=== PATIENT | female | born 1990 | race Caucasian/White ===

== ENCOUNTER → 2019-07-15 10:24 | Outpatient (CLI) | payer OTHER, SELFPAY ==
[2019-07-15 11:07] LABS: Hematocrit 37.4 % (36-46); Hemoglobin 12.8 g/dL (12.0-16.0); Mean Corpuscular HGB Conc 34.3 % (30-36); Mean Corpuscular Hemoglobin 29.6 PG (26-34); Mean Corpuscular Volume 86.4 fL (80-100); Platelet Count 205 X10^3/uL (150-400); Red Blood Cell Count 4.33 X10^6/uL (4.0-5.2); Red Cell Distribution Width 12.3 % (11.6-14.8); White Blood Cell Count 5.2 X10^3/uL (4.5-11.0)
[2019-07-15 11:35] LABS: Alanine Aminotransferase 10 IU/L (<35); Albumin 4.2 g/dL (3.5-5.0); Albumin Globulin Ratio 1.3 (1.0-2.8); Alkaline Phosphatase 53 U/L (38-126); Aspartate Aminotransferase 17 IU/L (14-36); BUN Creatinine Ratio 14.3 (6-22); Bilirubin Total 0.3 mg/dL (0.2-1.3); Blood Urea Nitrogen 10 mg/dL (7-17); Calcium 9.4 mg/dL (8.4-10.2); Carbon Dioxide 23 mmol/L (22-32); Chloride 106 mmol/L (98-107); Cholesterol 174 mg/dL (140-199); Estimated Glomerular Filt Rate > 60.0 mL/min (>60); Globulin 3.2 g/dL (1.7-4.1); Glucose 99 mg/dL (70-100); HDL Cholesterol 92 mg/dL (40-60); HEMOLYSIS < 15 (0-50); LDL Cholesterol Calculated 65 mg/dL (<100); Potassium 4.2 mmol/L (3.4-5.1); Sodium 137 mmol/L (137-145); Total Protein 7.4 g/dL (6.3-8.2); Triglycerides 86 mg/dL (35-150)
== END ==
PROVIDERS: PCP Nurse Practitioner Family; Referring Provider Nurse Practitioner Family; Visit Provider Nurse Practitioner Family
DX: Z00.00 Encounter for general adult medical examination without abnormal findings (principal); Z13.6 Encounter for screening for cardiovascular disorders
CPT/HCPCS: 36415; 80053; 80061; 85027

== ENCOUNTER → 2021-03-04 15:23 | Outpatient (CLI) | payer OTHER, SELFPAY ==
[2021-03-04 15:57] LABS: Add Manual Diff / Slide Review NO; Basophils Absolute Auto 100 /uL (0-100); Basophils Percent Auto 0.9 % (0-2); Eosinophils Absolute Auto 100 /uL (0-450); Eosinophils Percent Auto 1.1 % (2-4); Hematocrit 38.7 % (36-46); Lymphocytes Absolute Auto 1700 /uL (1100-4500); Lymphocytes Percent Auto 22.7 % (25-40); Mean Corpuscular HGB Conc 33.6 % (30-36); Mean Corpuscular Hemoglobin 29.2 PG (26-34); Mean Corpuscular Volume 86.8 fL (80-100); Monocytes Absolute Auto 500 /uL (0-900); Monocytes Percent Auto 6.8 % (3-14); Neutrophils Absolute Auto 5200 /uL (1500-7000); Neutrophils Percent Auto 68.5 % (50-75); Platelet Count 232 X10^3/uL (150-400); Red Blood Cell Count 4.46 X10^6/uL (4.0-5.2); Red Cell Distribution Width 12.4 % (11.6-14.8); White Blood Cell Count 7.6 X10^3/uL (4.5-11.0)
[2021-03-04 17:00] LABS: Hepatitis B Surface Antigen NEGATIVE s/c (NEGATIVE)
[2021-03-04 17:01] LABS: Rubella Antibody IgG 13.2 IU/mL (>15)
[2021-03-04 17:20] LABS: Appearance Urine UA CLEAR; Bilirubin Urine UA NEGATIVE (NEGATIVE); Color Urine UA YELLOW; Glucose Urine UA NEGATIVE (Negative); Ketones Urine UA TRACE (NEGATIVE); Leukocyte Esterase Urine UA NEGATIVE (NEGATIVE); Nitrite Urine UA NEGATIVE (Negative); Occult Blood Urine UA NEGATIVE (Negative); Protein Urine UA NEGATIVE (Negative); Specific Gravity Urine UA 1.015 (1.000-1.035); Urobilinogen Urine UA 0.2 E.U./dL (0.2)
[2021-03-04 17:31] LABS: HIV 1 & 2 Ab/Ag 4th Gen Combo NEGATIVE (NEGATIVE); Hep C Virus Ab w/Reflex Quant NEGATIVE s/c (NEGATIVE)
[2021-03-05 06:38] LABS: RPR Screen Non Reactive (Non Reactive)
[2021-03-06 15:27] LABS: Varicella IgG Antibody 1025 index (Immune >165)
== END ==
PROVIDERS: PCP Nurse Practitioner Family; Referring Provider Family Medicine; Visit Provider Family Medicine
DX: Z34.01 Encounter for supervision of normal first pregnancy, first trimester (principal)
CPT/HCPCS: 36415; 80055; 81003; 86787; 86803; 86850; 86900; 86901; 87086; 87389

== ENCOUNTER → 2021-04-08 13:36 | Outpatient (CLI) | payer OTHER, SELFPAY | PROVIDERS: PCP Nurse Practitioner Family; Referring Provider Family Medicine; Visit Provider Family Medicine | DX: Z34.90 Encounter for supervision of normal pregnancy, unspecified, unspecified trimester (principal); Z3A.10 10 weeks gestation of pregnancy | CPT/HCPCS: 36415 ==

== ENCOUNTER → 2021-06-03 12:01 | Outpatient (CLI) | payer OTHER, SELFPAY ==
--- NOTE | 2021-06-03 12:03 | DI.US.S_ITS ---
PROCEDURE: US OB >= 14 WEEKS FETUS INDICATIONS: ANATOMY SURVEY OUTSIDE/PRIOR DATING DATA: Last menstrual period (LMP): 01/07/2021. LMP-based estimated date of delivery (CELINA): 10/14/2021. First dating scan (date and location): 06/03/2021. Estimated date of delivery (CELINA) from first dating scan: 10/18/2021. The calculations are made using the ultrasound CELINA of 10/18/2021. TECHNIQUE: Real-time scanning was performed of the fetus, with image documentation and biometric measurements. Endovaginal scanning: Not performed COMPARISON: None. FINDINGS: General: A single living intrauterine gestation is present. Presentation: Cephalic. Placenta: Placental position is anterior, without previa. Amniotic fluid index: 14.8 cm, normal range is 5-24 cm. Single deepest vertical pocket is 4.3 cm. heart rate: 141 beats per minute. Maternal cervical canal: 3.9 cm long. Normal lower limit is 2.5 cm. biometrics: Biparietal diameter: 4.9 cm, 20 weeks 5 days Head circumference: 17.5 cm, 20 weeks 0 days Abdominal circumference: 15.1 cm, 20 weeks 2 days Femur length: 3.4 cm, 20 weeks 6 days Clinically estimated gestational age: 21 weeks 0 days Composite gestational age from present scan: 20 weeks 3 days Estimated weight and percentile: 357 g, 20th percentile Anatomic survey: Neuro: Ventricles are non-dilated at less than 10 mm. Cisterna magna is normal at 3-11 mm. Cerebellum is normal in size and morphology. Nuchal skin fold: Normal at less than 6 mm between 14-21 weeks gestational age. Face: Nose and lips, facial profile are normal. Spine: No evidence for spina bifida. Heart: 4-chambered heart is present, with normal ventricular outflow tracts. Diaphragm: Diaphragm is intact. Stomach: Left-sided stomach is present. Kidneys: No hydronephrosis. Normal is less than 5 mm in 2nd trimester, less than 7 mm in 3rd trimester. Cord: 3-vessel cord has orthotopic insertion. Bladder: Normal in size. Extremities: All 4 extremities identified. IMPRESSION: 1. [place] living intrauterine at 20 weeks 3 days based on today's ultrasound. This is concordant with the prior dating. Fetus is in the 20th percentile for weight. 2. Normal placenta and amniotic fluid. 3. Normal and complete anatomic survey. We strive to produce accurate, complete, and clear reports of imaging services. To assist us in improving patient care, this report was composed using standard report templates and voice recognition software. Therefore, it may contain abnormal punctuation, insertions and/or omissions. Occasional wrong-word or sound-alike substitutions may occur. Though we review the report and make efforts to correct it, we do recommend that the report be read carefully in proper context to recognize any text inaccuracies. Dictated by: Dat Reyes M.D. on 06/03/2021 at 13:40 Approved by: Dat Reyes M.D. on 06/03/2021 at 13:45
== END ==
PROVIDERS: PCP Nurse Practitioner Family; Referring Provider Family Medicine; Visit Provider Family Medicine
DX: Z34.02 Encounter for supervision of normal first pregnancy, second trimester (principal); Z3A.20 20 weeks gestation of pregnancy
CPT/HCPCS: 76811

== ENCOUNTER → 2021-07-22 10:01 | Outpatient (CLI) | payer OTHER, SELFPAY ==
[2021-07-22 11:42] LABS: Add Manual Diff / Slide Review NO; Basophils Absolute Auto 0 /uL (0-100); Basophils Percent Auto 0.4 % (0-2); Eosinophils Absolute Auto 100 /uL (0-450); Hematocrit 31.4 % (36-46); Hemoglobin 10.6 g/dL (12.0-16.0); Lymphocytes Absolute Auto 1300 /uL (1100-4500); Lymphocytes Percent Auto 15.1 % (25-40); Mean Corpuscular HGB Conc 33.7 % (30-36); Mean Corpuscular Hemoglobin 30.7 PG (26-34); Mean Corpuscular Volume 90.9 fL (80-100); Monocytes Absolute Auto 600 /uL (0-900); Monocytes Percent Auto 6.9 % (3-14); Neutrophils Absolute Auto 6800 /uL (1500-7000); Neutrophils Percent Auto 76.6 % (50-75); Platelet Count 238 X10^3/uL (150-400); Red Blood Cell Count 3.46 X10^6/uL (4.0-5.2); Red Cell Distribution Width 13.2 % (11.6-14.8); White Blood Cell Count 8.9 X10^3/uL (4.5-11.0)
[2021-07-22 12:10] LABS: GTT (PREG) 1 Hour PP 50gm Dose 117 mg/dL (76-139)
[2021-07-22 14:48] LABS: Urine Chlamydia NOT DETECTED; Urine N gonorrhoeae NOT DETECTED
== END ==
PROVIDERS: PCP Nurse Practitioner Family; Referring Provider Family Medicine; Visit Provider Family Medicine
DX: Z34.92 Encounter for supervision of normal pregnancy, unspecified, second trimester (principal); Z3A.26 26 weeks gestation of pregnancy
CPT/HCPCS: 36415; 82950; 85025; 87491; 87591

== ENCOUNTER 2021-09-27 15:02 | Observation (INO) | payer OTHER, SELFPAY ==
--- NOTE | 2021-09-27 15:20 | DI.US.S_ITS ---
PROCEDURE: US OB BIOPHYSICAL PROFILE INDICATIONS: HEART TONES IN THE 70s IN CLINIC OUTSIDE/PRIOR DATING DATA: Last menstrual period (LMP): 01/07/2021. LMP-based estimated date of delivery (CELINA): 10/14/2021. First dating scan (date and location): 06/03/2021. Estimated date of delivery (CELINA) from first dating scan: 10/18/2021. TECHNIQUE: Real-time scanning was performed of the fetus, with image documentation and biometric measurements. Biophysical profile was also obtained. Endovaginal scanning: Not obtained COMPARISON: None. FINDINGS: General: A single living intrauterine gestation is present. Presentation: Cephalic. Placenta: Placental position is anterior , without previa. Amniotic fluid index: 17.4 cm, normal range is 5-24 cm. heart rate: 155 beats per minute. Maternal cervical canal: 4.3 cm long. Normal lower limit is 2.5 cm. Biophysical profile: Tone: 2 points. Movement: 2 points. Respiration: 2 points. Largest pocket of fluid: 2 points. IMPRESSION: Single live intrauterine consistent with 37 week 0 day gestation. heart rate 155 beats per minute Approved by: Saúl Santos M.D. on 09/27/2021 at 16:23
--- NOTE | 2021-09-27 15:25 | PM.OBTRLD ---
Visit Information Visit Information Date of evaluation: 09/27/21 Primary OB Provider: Sylvie Hu Reason for Evaluation: Yes non-stress test Comments/Additional reasons for admission: Pt is a 31yo at 36w4d who presented from clinic after doppler showed HR in the 70s. The pt reports feeling the baby move less than usual today, and not for a little while. She denies any vaginal bleeding or LOF. She has been having mild, intermittent contractions. 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 Social History marital status: number of children: 0 household members: spouse lives independently: Yes caregiver/support person: No housing: house pets and animals: Yes (2 dogs: safe/aware.) education level: college occupational status: employed current occupational exposures/hazards: Yes (Some nitrous exposure. Trying to avoid it. ) special christie needs: No seatbelt use: always do you feel safe at home: Yes Smoking Status: Former smoker Tobacco: How many years used: 1 quit status: has quit before second hand exposure: No alcohol intake: former substance use type: does not use and other during the past year weight has: remained stable well-balanced diet: daily or most days daily servings fruits/ve-4 caffeine: No Type(s) of exercise: walking and normal ROM and activity frequency: does not exercise Evaluation Evaluation Baseline heart rate: 140 Variability: Moderate (11-25) monitor accelerations: Present Monitor Decelerations: Absent Contraction Frequency (minutes): 4 Category of Tracing: Reactive Status: Category l Cervical dilation (cm): 1 Cervical effacement (%): 50 station: -2 Diagnosis, Plan/Disposition Final Diagnosis (1) contractions: Status: Acute Plan/Disposition Plan: Pt is a 31yo at 36w4d here due to FHT in the 70s on doppler in clinic. FHT reassuring here in L&D on prolonged monitoring, with 8/8 BPP as well. Discussed kick counting in detail with the pt. Pt then noted to have regular contractions on monitoring, felt lightly be patient. Eventually decreased significantly and resolved with IVF bolus. No cervical change on exam. Pt stable for d/c home. OB Disposition: home
[2021-09-27] MEDS: LACTATED RINGERS 1,000 ML 999 ML IV (18:45)
--- NOTE | 2021-09-27 20:00 | PC.NURSE ---
19:50 RN at bedside, patient is doing well sitting up in bed, fluid bolus completed. Cervical exam requested by Dr. Hu, exam fingertip, 50%, and -2. Contractions have resolved and patient is doing well. Dr. Hu was contacted and given patient report. Plan to discharge.
== END 2021-09-27 20:16 | disposition home or self-care (01) ==
PROVIDERS: Admitting Provider Family Medicine; PCP Nurse Practitioner Family; Referring Provider Family Medicine; Visit Provider Family Medicine
DX: O36.8330 Maternal care for abnormalities of the fetal heart rate or rhythm, third trimester, not applicable or unspecified (principal); O47.03 False labor before 37 completed weeks of gestation, third trimester; O36.8130 Decreased fetal movements, third trimester, not applicable or unspecified; Z3A.36 36 weeks gestation of pregnancy
CPT/HCPCS: 59025; 59050; 76815; 76819; 96360; G0378; G0379

== ENCOUNTER → 2021-10-04 11:05 | Outpatient (CLI) | payer OTHER, SELFPAY ==
[2021-10-05 15:18] LABS: Strep Grp B PCR NEG for Grp B Strep
== END ==
PROVIDERS: PCP Nurse Practitioner Family; Visit Provider Family Medicine
DX: Z34.03 Encounter for supervision of normal first pregnancy, third trimester (principal); Z3A.37 37 weeks gestation of pregnancy
CPT/HCPCS: 87653

== ENCOUNTER 2021-10-18 15:02 | Observation (INO) | payer OTHER, SELFPAY ==
--- NOTE | 2021-10-18 16:03 | P.TNLD_ITS ---
Visit Information Visit Information Date of evaluation: 10/18/21 Primary OB Provider: Sylvie Hu Reason for Evaluation: Yes rupture of membranes Comments/Additional reasons for admission: Pt is a 31yo at 39w4d here for concerns for LOF. Pt reports feeling her underwear have been damp since this morning. She denies any vaginal bleeding. She has had mild cramping, but no strong contractions. 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 Social History marital status: number of children: 0 household members: spouse lives independently: Yes caregiver/support person: No housing: house pets and animals: Yes (2 dogs: safe/aware.) education level: college occupational status: employed current occupational exposures/hazards: Yes (Some nitrous exposure. Trying to avoid it. ) special christie needs: No seatbelt use: always do you feel safe at home: Yes Smoking Status: Never smoker Tobacco: How many years used: 1 quit status: has quit before second hand exposure: No alcohol intake: former substance use type: does not use and other during the past year weight has: remained stable well-balanced diet: daily or most days daily servings fruits/ve-4 caffeine: No Type(s) of exercise: walking and normal ROM and activity frequency: does not exercise Evaluation Evaluation Baseline heart rate: 140 Variability: Moderate (11-25) monitor accelerations: Present Monitor Decelerations: Absent Contraction Frequency (minutes): 5 Uterine Contraction Intensity: Mild Status: Category l Cervical dilation (cm): 1 Cervical effacement (%): 80 station: -1 Non-invasive Membranes Rupture Test: negative Diagnosis, Plan/Disposition Final Diagnosis (1) Amniotic fluid leaking: Status: Acute Plan/Disposition Plan: 31yo at 39w4d who presented with concerns for LOF. Amniosure negative. C ontracting, but feeling minimally and no significant cervical change. Stable for d/c home. OB Disposition: home
== END 2021-10-18 16:00 | disposition home or self-care (01) ==
PROVIDERS: Admitting Provider Family Medicine; PCP Nurse Practitioner Family; Referring Provider Family Medicine; Visit Provider Family Medicine
DX: Z03.71 Encounter for suspected problem with amniotic cavity and membrane ruled out (principal); Z3A.39 39 weeks gestation of pregnancy
CPT/HCPCS: 59025; 84112; G0378; G0379

== ENCOUNTER 2021-10-18 18:15 | Outpatient (CLI) | payer OTHER, SELFPAY | END 2021-10-18 19:00 | disposition home or self-care (01) | LOC: LABOR 18:20 → OB 10-21 16:03 | PROVIDERS: PCP Nurse Practitioner Family; Referring Provider Family Medicine; Visit Provider Family Medicine | DX: Z03.71 Encounter for suspected problem with amniotic cavity and membrane ruled out (principal); Z3A.39 39 weeks gestation of pregnancy | CPT/HCPCS: 59025; 84112; G0378; G0379 ==

== ENCOUNTER 2021-10-19 17:41 | Inpatient (IN) | payer OTHER, SELFPAY ==
[2021-10-19 19:04] LABS: Add Manual Diff / Slide Review NO; Basophils Absolute Auto 100 /uL (0-100); Basophils Percent Auto 0.9 % (0-2); Eosinophils Absolute Auto 100 /uL (0-450); Eosinophils Percent Auto 0.9 % (2-4); Hematocrit 36.7 % (36-46); Hemoglobin 12.9 g/dL (12.0-16.0); Lymphocytes Absolute Auto 1600 /uL (1100-4500); Lymphocytes Percent Auto 15.9 % (25-40); Mean Corpuscular HGB Conc 35.2 % (30-36); Mean Corpuscular Hemoglobin 31.4 PG (26-34); Monocytes Absolute Auto 900 /uL (0-900); Monocytes Percent Auto 9.3 % (3-14); Neutrophils Absolute Auto 7200 /uL (1500-7000); Platelet Count 206 X10^3/uL (150-400); Red Blood Cell Count 4.12 X10^6/uL (4.0-5.2); Red Cell Distribution Width 12.8 % (11.6-14.8); White Blood Cell Count 9.9 X10^3/uL (4.5-11.0)
[2021-10-19] MEDS: LACTATED RINGERS 1,000 ML 100 ML IV ×2 (19:30→22:54)
[2021-10-19 19:40] LABS: COVID19 -Nasal RAPID Negative (Negative)
[2021-10-19 20:13] VITALS: BP 124/76
--- NOTE | 2021-10-19 23:22 | PM.AN.REGBLK ---
Regional Block Pre-procedure Procedure: Continuous Lumbar Epidural for L&D Attending OB provider: Sylvie Hu PMH/ROS narrative: term labor, SROM, no complications. ASA Class: II Labs: Hct 36.7 % (36-46) 10/19/21 18:45 Plt Count 206 X10^3/uL (150-400) 10/19/21 18:45 Medications: Current Medications Generic Name Dose Route Start Last Admin Trade Name Freq PRN Reason Stop Dose Admin Carboprost Tromethamine 250 mcg 10/19/21 18:35 Carboprost 250 Mcg/Ml Ampul IM Q90M PRN Bleeding Lactated Ringer's 1,000 mls @ 100 mls/hr 10/19/21 18:45 10/19/21 22:54 Lactated Ringers IV 100 mls/hr CONT LUCINDA Administration Oxytocin/Lactated Ringer's 30 unit in 500 mls @ 200 mls/hr 10/19/21 18:35 Oxytocin Premix IV CONT PRN Bleeding Protocol Tranexamic Acid 1,000 mg/ 100 mls @ 200 mls/hr 10/19/21 18:35 Sodium Chloride IV NOW PRN Bleeding Methylergonovine Maleate 0.2 mg 10/19/21 18:35 Methylergonovine 0.2 Mg Tablet PO Q6HR PRN Heavy Bleeding Methylergonovine Maleate 0.2 mg 10/19/21 18:35 Methylergonovine 0.2 Mg/Ml Vial IM NOW PRN Bleeding Misoprostol 800 mcg 10/19/21 18:35 Misoprostol 200 Mcg Tablet AR NOW PRN Bleeding Misoprostol 1,000 mcg 10/19/21 18:35 Misoprostol 200 Mcg Tablet AR NOW PRN Bleeding Misoprostol 400 mcg 10/19/21 18:35 Misoprostol 200 Mcg Tablet SL NOW PRN Bleeding Oxytocin 10 unit 10/19/21 18:35 Oxytocin 10 Unit/Ml Vial IM NOW PRN Bleeding Allergies: Allergies Allergy/AdvReac Type Severity Reaction Status Date / Time Penicillins Allergy Intermediate Rash Verified 10/15/21 10:35 Sulfa (Sulfonamide Allergy Intermediate Rash Verified 10/15/21 10:35 Antibiotics) Procedure Insertion date: 10/19/21 Insertion time: 23:06 Prep/Local: betadine x3 and 1% lidocaine Interspace: L3-4 Patient position: sitting Needle: 18 gauge Hustead (CSE: 27 g Pencan through Hustead, clear CSF, 1mL 0.25% bupiv MPF) Loss of resistance with: saline SUZY at (cm): 5 Catheter placed at SKIN (cm): 10 Catheter in SPACE (cm): 5 Insertion: No CSF, No Blood, No Paresthesia with insertion, No Paresthesia with injection and No Test dose reaction Initial Medications TEST DOSE time: 23:08 TEST DOSE: 1.5% lidocaine with epinephrine 1:200k (mL): 3 BOLUS DOSE time: 23:20 BOLUS DOSE (mL): 5 BOLUS DOSE med: other (infusate) Infusion INFUSION: 0.125% bupivacaine and with fentanyl 2 mcg/mL Initial rate (mL/hr): 6 Subsequent interventions: 1200 - 5mL 2-chloroprocaine for lac repair Post-procedure Anesthesia time START: 22:55 Anesthesia time END: 12:33 Post-procedure Anesthesia Assessment: Yes CV function: HR/BP stable, Yes Resp function: RR/sat/airway adequate, Yes Mental status appropriate and No Anesthesia complications
[2021-10-20] MEDS: OXYTOCIN PREMIX 30 UNIT/500 ML PLAST..BAG IV (02:10)
[2021-10-20] MEDS: LACTATED RINGERS 1,000 ML 100 ML IV (06:00)
[2021-10-20] MEDS: FENT 2MCG/ML BUPIV 0.125% EPI 200 MCG/100 ML PLAST..BAG 6 MCG EPIDURAL (08:48)
--- NOTE | 2021-10-20 09:01 | P.HPOB_ITS ---
OB HPI Date/Time Date of admission: 10/19/21 Date Patient Seen: 10/20/21 Time Patient Seen: 09:02 History of Present Condition Chief complaint: CELINA Calculator Estimated Delivery Date Method Current WG Current Estimate 10/21/21 Manual 39w 6d Final CELINA - DOMITILA Other Estimates 10/14/21 LMP (Certain) 40w 6d 10/21/21 Ultrasound #1 39w 6d Estimated Gestational Age (weeks): 39w6d : 1 Para: 0 Narrative: Pt is a 31yo at 39w6d who presented with SROM. Pt reports feeling a gush of fluid around 5:30pm yesterday. She has continued to leak since then. She denies any vaginal bleeding. Her contractions have gotten more painful. She continues to feel her baby move regularly. The pts has been uncomplicated. care: good care, initiated at week # and pounds weight gain Dating criteria OB: based on 1st trimester US only Ultrasounds: normal 1st trimester US and normal mid trimester US Obstetrical complications: none Medical complications OB: none Preadmission Labs Last OB Lab Results: Blood Type B Positive 10/19/21 18:45 10/19/21 Antibody Screen Negative 10/19/21 18:45 10/19/21 Hematocrit 36.7 % (36-46) 10/19/21 18:45 10/19/21 Hemoglobin 12.9 g/dL (12.0-16.0) 10/19/21 18:45 10/19/21 Hepatitis B Surface Antigen Negative s/c (NEGATIVE) 03/04/21 15:29 03/04/21 Hepatitis C Antibody Negative s/c (NEGATIVE) 03/04/21 15:29 03/04/21 Rubella Antibody 13.2 IU/mL (>15) L 03/04/21 15:29 03/04/21 Varicella-Zoster IgG Antibody 1025 index (Immune >165) 03/04/21 15:29 03/04/21 Glucose 1 Hour 117 mg/dL (76-139) 07/22/21 11:20 07/22/21 Group B Streptococcus (PCR) Neg for grp b strep 10/04/21 11:05 10/04/21 -: Chlamydia screen: negative, Gonorrhea screen: negative and Urine: negative Genetic Screens: Cell-free DNA: Normal External Labs -: Urine: negative Evaluation Evaluation Baseline heart rate: 120 Variability: Moderate (11-25) monitor accelerations: Present Monitor Decelerations: Absent Contraction Frequency (minutes): 3 Uterine Contraction Intensity: Strong/Firm Status: Category l Dilation (cm): 10 Effacement (%): 100 station: +1 Non-invasive Membranes Rupture Test: positive [facility] Medical History (Updated 10/19/21 @ 21:25 by Sylvie Hu MD) Abnormal Pap smear of cervix (~2018) Acne (~2009) Chicken pox (~1992) Chlamydia (~2013) Fainting (2015) Finger fracture, right 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 Social History marital status: number of children: 0 household members: spouse lives independently: Yes caregiver/support person: No housing: house pets and animals: Yes (2 dogs: safe/aware.) education level: college occupational status: employed current occupational exposures/hazards: Yes (Some nitrous exposure. Trying to avoid it. ) special christie needs: No seatbelt use: always do you feel safe at home: Yes Smoking Status: Never smoker Tobacco: How many years used: 1 quit status: has quit before second hand exposure: No alcohol intake: former substance use type: does not use and other during the past year weight has: remained stable well-balanced diet: daily or most days daily servings fruits/ve-4 caffeine: No Type(s) of exercise: walking and normal ROM and activity frequency: does not exercise Meds Home Medications and Allergies Home Medications Medication Instructions Recorded Confirmed Type ketoconazole 2 % shampoo 1 applic TOP 2XW PRN #120 ml 12/12/20 10/20/21 Rx prenat.vits,aleksandr,ibh-jxiy-angyr 1 tab PO DAILY 02/22/21 10/20/21 History breast pump #1 ea 07/29/21 10/20/21 Rx Allergies Allergy/AdvReac Type Severity Reaction Status Date / Time Penicillins Allergy Intermediate Rash Verified 10/15/21 10:35 Sulfa (Sulfonamide Allergy Intermediate Rash Verified 10/15/21 10:35 Antibiotics) Objective Labs Result Diagrams: 10/19/21 18:45 Labs: Laboratory Results - last 24 hr 10/19/21 10/19/21 10/19/21 18:45 18:45 18:45 WBC 9.9 RBC 4.12 Hgb 12.9 Hct 36.7 MCV 89.0 MCH 31.4 MCHC 35.2 RDW 12.8 Plt Count 206 Neut % (Auto) 73.0 Lymph % (Auto) 15.9 L Ida % (Auto) 9.3 Eos % (Auto) 0.9 L Baso % (Auto) 0.9 Neut # (Auto) 7200 H Lymph # (Auto) 1600 Ida # (Auto) 900 Eos # (Auto) 100 Baso # (Auto) 100 SARS-CoV-2 (PCR) Negative Blood Type B Positive Antibody Screen Negative Assessment and Plan Assessment and Plan Assessment and Plan narrative: 31yo at 39w6d here with SROM at 5:30pm yesterday. Pitocin initiated last night due to spacing of contractions, now fully dilated. GBS negative, Rh p ositive. - Expectant management, anticipate - Start pushing now - GBS negative, no prophylaxis indicated - FHT reassuring - Epidural in place for pain control
[2021-10-20] MEDS: fentaNYL 100 MCG/2 ML INJ 50 MCG IV (12:04)
[2021-10-20] MEDS: IBUPROFEN 600 MG TABLET PO (15:20)
[2021-10-20] MEDS: DOCUSATE 100 MG CAPSULE PO (15:20)
[2021-10-20] MEDS: DERMOPLAST SPRAY 20% 60 ML 1 SPRAY TOP (15:25)
--- NOTE | 2021-10-20 15:30 | PM.OBPRVD ---
Labor & Delivery Delivery date: 10/20/21 Intrapartal Events: None Cervical ripening method: none Induction method: none Delivery augmentation: pitocin Delivery monitor: external FHT Route of delivery: Episiotomy description: None L&D Laceration Description: Perineal - 4th Degree and Vaginal - 2nd Degree Quantitative Blood Loss: 250 Anesthesia Type: Epidural Complications: Shoulder dystocia Narrative: PROCEDURE: at 39w8d presented with SROM and was admitted to Labor and Delivery. The patient progressed through the 1st stage over 15.5 hours. Pain was controlled with an epidural. Pitocin was initiated due to spacing of her contractions. The patient progressed through the 2nd stage over 2.5 hours. With delivery of the head, there was no movement past the brow. The head was able to be extracted with rectal pressure. A shoulder dystocia was then present (see below). She ultimately delivered a viable female with APGARs 7/9 at 11:42 via . The cord was cut and clamped after it stopped pulsating. The perineum and vagina were inspected with left sulcal laceration with arterial bleeding that extended onto the left labia. This was promptly repaired with 2-O Chromic. The epidural was then rebolused to help with pain control. A 2nd degree perineal laceration with extension superficially to 4th degree including the rectal mucosa but not involving the rectal sphincter was then repaired. The rectal mucosa was repaired with 4-O Chromic, and then 2nd degree perineal laceration repaired with 2-O Vicryl in the usual fashion. Shoulder dystocia present: Anterior shoulder : Right Time head delivered: 11:41 Time rest of body delivered: 11:42 No fundal pressure applied Standard traction on vertex applied. Maneuvers performed: Harish, Suprapubic pressure Episiotomy: None Cord gases sent: No. Baby cried spontaneously immediately after delivery. Delayed cord clamping completed. Very little blood remained in the cord after delayed clamping, making collection of cord gases not obtainable. Status of before leaving delivery room: Evidence of injury: None Moving all extremities: Yes Patient was notified of shoulder dystocia and delivery maneuvers. She had no further questions. PREPROCEDURE DIAGNOSIS: Intrauterine at 39w6d GBS negative RH positive POSTPROCEDURE DIAGNOSIS: Intrauterine at 39w6d, delivered Same as preprocedure Shoulder dystocia [place] Baby 1: gender: Female Presentation: vertex Position: Left Occiput Anterior Placenta delivery description: Spontaneous Cord Vessel Description: 3 Vessels and Nuchal Cord score (1 min): 7 score (5 min): 9 weight: 7 lb 9.695 oz Plan for aftercare: Routine care
[2021-10-20] MEDS: OXYCODONE IR 5 MG TABLET PO (17:05)
[2021-10-20] MEDS: ACETAMINOPHEN 325 MG TABLET 650 MG PO (18:33)
[2021-10-20] MEDS: OXYCODONE IR 5 MG TABLET 10 MG PO (19:40)
[2021-10-20] MEDS: KETOROLAC 30 MG/ML VIAL IV (22:08)
[2021-10-21] MEDS: OXYCODONE IR 5 MG TABLET PO ×3 (00:48→12:02)
[2021-10-21] MEDS: ACETAMINOPHEN 325 MG TABLET 650 MG PO ×4 (00:48→23:02)
[2021-10-21] MEDS: KETOROLAC 30 MG/ML VIAL IV ×3 (04:18→18:01)
[2021-10-21] MEDS: PRENATAL VIT,CALC/IRON/FOLIC 1 TABLET 1 TAB PO (10:02)
[2021-10-21] MEDS: DOCUSATE 100 MG CAPSULE PO (10:02)
--- NOTE | 2021-10-21 15:34 | PT.IIE ---
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 (~2018) Ovarian cyst Psoriasis (~2014) Physical Therapy Inpatient Evaluation/Re-Eval M1 PT/OT-IP Prior Functional Status Start: 10/21/21 15:04 Freq: NEEDED Status: Active Protocol: Document 10/21/21 15:05 [facility] (Rec: 10/21/21 15:33 [facility] [id number]) Medical Review Prior Functional Status Medical History Reviewed Yes Communication communication with nursing prior to PT consult Mobility and Gait prior mobility was IND Social History Household Members spouse Living Arrangements House Number of Floors (Floors) Two Floors Home Environment Standard Height Toilet Employment Status [employer] Employed Additional Social History Comment pt lives in [place] [phone] PT-IP Current Condition Start: 10/21/21 15:04 Freq: NEEDED Status: Active Protocol: Document 10/21/21 15:05 [facility] (Rec: 10/21/21 15:33 [facility] [id number]) Physical Therapy Current Condition Current Condition Evaluation Date 10/21/21 Treatment Diagnosis pelvic pain and groin pain s/o delivery, difficulty walking without walker Onset Date 10/20/21 M3 PT-IP Subjective Start: 10/21/21 15:04 Freq: NEEDED Status: Active Protocol: Document 10/21/21 15:05 [facility] (Rec: 10/21/21 15:33 [facility] [id number]) Subjective Physical Therapy Visit Type Type Initial Evaluation Visit Start Time 14:10 Visit Stop Time 15:00 Total Visit Minutes 50 Physical Therapy Visit Comments Patient Comments Manda is sitting up in bedside chair, she agrees to PT and notes she has a history of left sided SI pain with her Therapy Pain Assessment Pain When Pain Assessed During Mobility Pain Present Pain Present Pain Reported Location lower abdominal pain Description With Movement groin pain' Description With Movement Pain Management Techniques Apply Cold pelvic pain Description With Movement Pain Management Techniques Apply Cold M4 PT-IP Mobility and Gait Start: 10/21/21 15:04 Freq: NEEDED Status: Active Protocol: Document 10/21/21 15:05 [facility] (Rec: 10/21/21 15:33 [facility] [id number]) PT-Bed Mobility Assessment Rolling Type of Rolling Log Rolling Level of Assist Moderate Assistance Scooting Scooting to Edge of Bed Standby Assistance PT-Transfer Assessment Sit to and From Stand Sit to and from Stand Standby Assistance Equipment Transfer Assistive Device Gait Belt,Front Wheeled Walker Transfers Transfer Destination Toilet Transfer Technique Stand Step Pivot Transfer Ability Level of Assist Standby Assistance Comments Mobility Comments pt able to slowly transfer with SBA and fww but does require mod assistance getting in and out of bed for her legs Gait Assessment Gait Gait Assistance Required: Standby Assistance Distance (Feet) 15 Able to Maintain Weight Bearing Status Yes During Gait Assistive Devices Assistive Device Gait Belt,Front Wheeled Walker Gait Deviations General Gait Pattern Decreased Stride Length,Wide Based Gait Factors Limiting Gait Function Factors Limiting Gait Function Pain Comments Gait Comments pt notes groin and pelvic pain with ambulation but she does note it feels better today than it did yesterday. She ambulated in the room to sit at bedside, we worked on sit- stand with abdominal bracing, she then ambulated to the bathroom with FWW and SBA Nursing came in to assist at that point and nursing ambulated with her back to bed . PT-Balance Assessment Sitting Balance and Reactions Static Sitting Balance Ability Normal Dynamic Sitting Balance Ability Normal Standing Balance and Reactions Static Standing Balance Ability Good Dynamic Standing Balance Ability Good M5 PT-IP Objective Assessments Start: 10/21/21 15:04 Freq: NEEDED Status: Active Protocol: Document 10/21/21 15:33 [facility] (Rec: 10/21/21 15:34 [facility] [id number]) Gross Range of Motion Upper Extremity ROM Assessment Within Functional Limits Lower Extremity ROM Assessment Bilaterally Impaired Impairments pain with AROM of LE, guarded movements with AROM of heel slide and hip abudction M6 PT-IP Treatment Start: 10/21/21 15:04 Freq: NEEDED Status: Active Protocol: Document 10/21/21 15:05 [facility] (Rec: 10/21/21 15:33 [facility] [id number]) Physical Therapy Treatment Exercises Exercises Ankle Pumps,Heel Slides,Supine Hip Abduction M7 PT-IP Assessment and Plan Start: 10/21/21 15:04 Freq: NEEDED Status: Active Protocol: Document 10/21/21 15:05 [facility] (Rec: 10/21/21 15:33 [facility] [id number]) PT Summary Assessment and Plan Potential Rehabilitation Potential Excellent Status of Condition at Evaluation Stable Summary Impairments Pain,ROM,Strength,Bed Mobility Assessment Summary Manda is a 31 year old female s/p vaginal delivery 10/20/21 with perineal tear per MD report of 4th degree but not including the rectal sphincter and a 2nd degree vaginal tear . She was in labor for 15.5 hours and pain was controled with a epidural. Pitocin was then administered and she progressed through the 2nd stage in 2.5 hrs. A shoulder dystocia was then present. Per patient report she was in the stirups for a period of time as well as her hips were maneuvered to assit with delivery. At time of PT consult Manda notes she is better today than yesterday. Her chief complaint is of both pelvic floor discomfort as well as groin and abdominal discomfort making it difficult to walk. She is concerned about walking up her stairs at home and about having her first bowel movement. Time was spent talking to her about using a squatty potty which she has at home to assist with bowel movements. She was educated on using ice both for her perineum as well as for her groin. She describes pain in her groin and abdomen with gait and has to move very slow due to the pain. We discussed a SI belt for her to assist with support and at this time she doesn't feel she could wear one due to abdominal discomfort. She was able to ambulate in the room for me with SBA and use the bathroom. Her was present to tell her that she can avoid the stairs in the house and stay downstairs until she feels able to do stair. She does need to get up one set of stairs with a rail into her house. She notes she does not feel the urge to void yet but can feel some pressure at her bladder once it is full. I did talk to her about checking in with her bladder every 2.5-3 hours and trying to void. I described Pelvic floor PT to Manda for once she has had her 6 week check up and she may be a good candidate for pelvic floor PT. She was given gentle hip ROM exercises to do in bed to help with the muscle guarding and pain. Pictures of her exercises were provided for her. Manda may also benefit from a FWW for home use until her muscles have relaxed and she feels more comfortable walking on her own. Frequency of Treatment Frequency Of Treatment Discharge Treatment Plan Other Recommendations and Next Treatment referral for out patient PT Focus after her 6 weeks check up referral for FWW for home Discharge Recommendations PT Discharge Recommendations Home Other Discharge Recommendations Pelvic floor PT after 6 weeks check up Equipment Needed for Home Before FWW Discharge Transportation Needs at Discharge Private Vehicle
[2021-10-21 17:38] LABS: Hematocrit 25.6 % (36-46); Hemoglobin 8.9 g/dL (12.0-16.0)
--- NOTE | 2021-10-21 17:42 | PM.OBPN.1 ---
Subjective - OB Subjective Date Patient Seen: 10/21/21 Time Patient Seen: 07:50 Interval history: Pt with significant pain with ambulation and severe leg weakness. Rising very slowly from the bed only with assistance, and walking with a walker very cautiously. Significant abdominal pain. Perineal pain has improved somewhat from yesterday. Lochia is decreasing appropriately. Pt with difficulty voiding last night, now able to void without difficulty. Pt is passing flatus. She is with some difficulty on the left, good latch on the right. Exam Narrative Exam Narrative: Gen: NAD, sitting comfortably in bed, appears well CV: RRR, no murmurs Resp: clear to auscultation bilaterally Abd: soft, appropriately tender, fundus firm and below the umbilicus, nondistended Ext: 1+ edema Objective Labs Result Diagrams: 10/21/21 17:28 Labs: Laboratory Results - last 24 hr 10/21/21 17:28 Hgb 8.9 L Hct 25.6 L Assessment & Plan Plan Comments: 31yo PPD#1 s/p complicated by shoulder dystocia and superficial 4th degree laceration. Pt with significant discomfort with ambulation and muscle weakness. - Normal care - Encouraged movement/ambulation today - PT consulted, as pt is currently ambulating only extremely slowly with a walker - IV Toradol for pain - Oxycodone 10mg q4hr for pain in addition to Tylenol - Dulcolax, Docusate, Milk of Mag for BMs - consulted Time Spent With Patient Time: Total time spent is greater than 50% in coordination of care (as documented) at patient's floor/unit and/or counseling patient: Time with patient: 15-24 minutes
[2021-10-21] MEDS: BISACODYL 5 MG TABLET PO (18:01)
[2021-10-21] MEDS: OXYCODONE IR 5 MG TABLET 10 MG PO (23:03)
[2021-10-22] MEDS: IBUPROFEN 600 MG TABLET PO ×3 (01:25→17:12)
[2021-10-22] MEDS: ACETAMINOPHEN 325 MG TABLET 650 MG PO ×2 (06:04→17:17)
[2021-10-22] MEDS: PRENATAL VIT,CALC/IRON/FOLIC 1 TABLET 1 TAB PO (08:52)
[2021-10-22] MEDS: OXYCODONE IR 5 MG TABLET 10 MG PO ×2 (08:52→17:14)
[2021-10-22] MEDS: DOCUSATE 100 MG CAPSULE PO (08:52)
--- NOTE | 2021-10-22 17:47 | P.DS_ITS ---
Discharge Providers Provider Date of admission: 10/19/21 17:41 Discharge Date: 10/22/21 Primary care physician: CHUCK Terrazas Consults: 10/21/21 11:01 Consult to Physical Therapy Evaluate & Treat Comment: Physician Instructions: Evaluate and Treat 10/21/21 12:27 Consult to Aircraft Maintenance In[employer] Routine Comment: Discharge provider: Sylvie Hu MD Summary Hospital Course Date Patient Seen: 10/22/21 Time Patient Seen: 07:30 Diagnoses: 39w6d gestation Shoulder dystocia Superficial 4th degree laceration Hospital Course: The pt was admitted with SROM. She was initiated on pitocin due to spacing of her contractions. She progressed to complete and pushed for 2.5hrs. At delivery, there was a shoulder dystocia relieved with Harish and suprapubic pressure. There was no evidence of injury to the baby, with APGARs 7/9. A deep left sulcal laceration and superficial 4th degree laceration were then repaired. , the pt initially had difficulty with pain control. This was controlled with IV Toradol and increasing narcotic pain medications. She then had great difficulty with ambulation. PT was consulted. The pt gradually regained strength, and at the time of d/c was ambulating short distances independently. At the time of discharge she was voiding and passing flatus. She will continue on stool softeners at discharge. Her lochia was decreasing appropriately. She was with good latch. She will f/u in clinic in 2 weeks. Peripartum Data Delivery Method: Natural Vaginal Laceration Description: Perineal - 4th Degree and Vaginal - 2nd Degree Episiotomy description: None Procedures: Spontaneous vaginal delivery complications: perineal laceration 1: Gender: Female Disposition of : home Discharge Diagnosis (1) Spontaneous vaginal delivery: Status: Acute (2) Fourth degree perineal laceration: Status: Acute (3) Shoulder dystocia, delivered: Status: Acute Time Spent with Patient Time attestation: Total time spent providing and/or coordinating discharge services: Objective Labs Result Diagrams: 10/21/21 17:28 Exam Narrative Exam Narrative: Gen: NAD, sitting comfortably in bed, appears well CV: RRR, no murmurs Resp: clear to auscultation bilaterally Abd: soft, appropriately tender, fundus firm and below the umbilicus, nondistended Ext: no edema Discharge Plan Discharge Plan Patient Disposition: Home Discharge orders & Medications Prescriptions: New acetaminophen 325 mg Tablet 650 mg PO Q6HR PRN (Reason: Pain, Mild (1-3)) Qty: 60 0RF docusate sodium 100 mg Capsule 100 mg PO DAILY Qty: 30 0RF bisacodyl 5 mg Tablet,Delayed Release (Dr/Ec) 5 mg PO DAILY Qty: 30 0RF ibuprofen 600 mg Tablet 600 mg PO Q6HR PRN (Reason: Pain, Mild (1-3)) Qty: 60 0RF oxycodone 5 mg Tablet 10 mg PO Q4HR PRN (Reason: Pain, Severe (7-10)) Qty: 30 0RF Continued (DME) breast pump Device See Rx Instructions .ROUTE .MEDSUPPLY Qty: 1 0RF Rx Instructions: As directed ketoconazole 2 % shampoo 1 applic TOP 2XW PRN (Reason: psoriasis) Qty: 120 0RF prenat.vits,aleksandr,[id number]-lxhc-lvrnn Tablet 1 tab PO DAILY 0RF Follow up/Referrals: Kade Chairez ARNP [Primary Care Provider] - Sylvie Hu MD [Physician] - 2 Weeks Diet/Activity/Treatments Diet: Diet as Tolerated and Regular Skin/Wound/Dressing Care Report to your healthcare provider any signs of infection, such as:: chills, fever, increased pain and unusual drainage Visit Report/Discharge Packet Instructions: DI for Labor and Delivery, Vaginal Stand Alone Forms: Discharge: Care Visit Report Forms: Patient Portal/API, Stroke Signs & Symptoms Discharge Data Primary Care Provider: Kade Chairez Discharges patient from system. Discharge Date/Time: 10/22/21 19:55
[2021-10-22 18:45] VITALS: BP 112/67; PULSE 103; RESP 16; TEMP 36.8
== END 2021-10-22 19:55 | disposition home or self-care (01) | DRG 768 ==
PROVIDERS: Admitting Provider Family Medicine; PCP Nurse Practitioner Family; Referring Provider Family Medicine; Visit Provider Family Medicine
DX: O42.02 Full-term premature rupture of membranes, onset of labor within 24 hours of rupture (principal); Z37.0 Single live birth; O70.3 Fourth degree perineal laceration during delivery; O66.0 Obstructed labor due to shoulder dystocia; Z3A.39 39 weeks gestation of pregnancy; O70.1 Second degree perineal laceration during delivery; Z20.822 Contact with and (suspected) exposure to COVID-19
CPT/HCPCS: 01967; 36415; 59050; 59400; 85014; 85018; 85025; 86850; 86900; 86901; 87635; 97110; 97161; C9803; G0379; J1885; J2590; J3010